=== PATIENT | female | born 2000 | race Caucasian/White ===

== ENCOUNTER 2023-12-22 17:25 | Emergency (ER) | payer OTHER, SELFPAY ==
[2023-12-22 17:28] VITALS: BP 121/67
[2023-12-22 17:47] LABS: % Basophils 0.3 % (0-2); % Eosinophils 0.2 % (0-6); % Immature Granulocytes 0.5 % (0-0.5); % Lymphocytes 7.2 % (20.5-51.1); % Monocytes 8.6 % (1.7-9.3); % Neutrophils 83.2 % (42.2-75.2); Absolute Immature Granulocytes 0.1 10^3/uL (0-0.05); Absolute Lymphocytes 0.9 10^3/uL (1.2-3.4); Absolute Monocytes 1.1 10^3/uL (0.1-0.6); Absolute Neutrophils 10.2 10^3/uL (1.4-6.5); Hematocrit 35.7 % (37.0-47.0); Hemoglobin 12.6 g/dL (12.0-16.0); Mean Corp Hgb Conc. 35.3 g/dL (33.0-37.0); Mean Corpuscular Hgb 27.5 pg (27.0-31.0); Mean Corpuscular Volume 77.9 fL (81.0-99.0); Mean Platelet Volume 11.3 fL (7.4-10.4); Nucleated Red Blood Cells % 0 %; Platelet Count 305 10^3/uL (130-400); Red Blood Cell Count 4.58 10^6/uL (4.20-5.40); Red Cell Dist. Width 13.2 % (11.5-14.5); White Blood Cell Count 12.3 10^3/uL (4.8-10.8)
[2023-12-22 18:04] LABS: ALT (SGPT) 14 U/L (0-35); AST (SGOT) 23 U/L (14-36); Albumin 4.7 g/dl (3.5-5.0); Alkaline Phosphatase 93 U/L (38-126); Blood Urea Nitrogen 8 mg/dl (7-17); COVID-19 Antigen Negative (Negative); Calcium 9.3 mg/dl (8.4-10.2); Carbon Dioxide 21 mmol/L (22-30); Chloride 98 mmol/L (98-107); Glucose 125 mg/dl (70-99); Potassium 4.5 mmol/L (3.5-5.1); Sodium 130 mmol/L (135-145); Total Protein 7.1 g/dl (6.3-8.2); eGFR > 60.00
--- NOTE | 2023-12-22 18:59 | ED.GENMED ---
History of Present Illness
General
Chief Complaint: Cold/Flu/URI Symptoms
Time Seen by Provider: 12/22/23 18:59
History of Present Illness
History of Present Illness:
HPI: Yesterday morning, after night of drinking alcohol, she felt unwell and thought she was 'hung over'. Yesterday evening she felt increased myalgias and arthralgias and started having some neck discomfort. She has not had a fever and reports a
Tmax of 99 �F. She spoke to a PA and ultimately family spoke to Dr. Olivares who is a family friend who encouraged ED evaluation. Mom reports no confusion. She reports pain to the back of the head.
EXAM:
GENERAL: Well appearing in no distress
HEENT: Moist oral mucosa
NECK: There is decreased active range of motion to extension and flexion
CARDIOVASCULAR: No murmurs, normal heart rate, regular rhythm, No chest wall tenderness
PULMONARY: No respiratory distress, breath sounds are clear and equal
ABDOMEN: Soft with no peritoneal signs, no tenderness
NEUROLOGIC: Excellent strength all extremities, no coordination deficits negative Kernig's and Brudzinski's sign's
PSYCHIATRIC: Appropriate mental status, normal insight and judgement
EXTREMITIES: Nontender, no edema, moves all extremities equally
SKIN: No rash, no lesions
TIME OF INITIAL ENCOUNTER: 7:05 PM
NUMBER AND COMPLEXITY OF PROBLEMS ADDRESSED AT THE ENCOUNTER
� Chronic conditions affecting care: ADHD
� Acute Exacerbation and/or Progression of Chronic Illness: This is an acute problem
� Differential Diagnosis includes: Viral syndrome, meningitis (possible viral, low suspicion for bacterial),
AMOUNT AND/OR COMPLEXITY OF DATA TO BE REVIEWED AND ANALYZED
� I performed an independent evaluation of and my interpretation is:
EKG:
CT:
X-rays:
Laboratory Studies: White count 12.3, hemoglobin normal, bicarb 21 otherwise chemistries relatively unremarkable, COVID-negative, flu negative
Other:
� Review of other/old records: The patient was seen in 2019 with diarrhea and had an unremarkable chest x-ray at that time
� Clinical information was obtained by an independent historian: I spoke to the mother at bedside
� Prescriptions/Medications Considered but not given:
� Further testing considered but not performed: No indication for chest x-ray as there are no respiratory symptoms. I had long discussion with the patient and her father in the room on reassessment 8:30 PM. There has been
minimal improvement with Toradol however she appears very well with appropriate mental status. I informed her that I have very low suspicion of a bacterial meningitis however cannot definitively rule it out without a lumbar puncture. She
verbalized understanding of this I did tell her that is very possible that she could have a viral meningitis. At this time she declines lumbar puncture which I feel is reasonable and she will return here if worse.
RISK OF COMPLICATIONS AND/OR MORBIDITY OR MORTALITY OF PATIENT MANAGEMENT
� Social determinants of health affecting care: Lives at home
� Discussion with other providers:
� Escalation of care including admission/observation vs risk of discharge considered: We talked about possibility of lumbar puncture. The patient does have pain with attempted flexion and extension at the cervical spine, however
at this time she has excellent mental status with no confusion and has been afebrile. Suspect more of a viral syndrome. See above.
Past History
Social History
Tobacco: Non-smoker
Alcohol: None
Drug: None
Phy Exam
Physical Exam
Physical Exam:
See HPI
Course
Orders/Labs/Results
Orders:
Orders
12/22/23 17:40
COVID-19 Antigen Urgent
Source: Nasal Swab
Complete Blood Count/With Diff Urgent
Comprehensive Metabolic Panel Urgent
Influenza A+B Rapid Molecular Urgent
MANPREET Source: Nasal Swab
Specimen Description:
12/22/23 19:01
0.9% Sodium Chloride 1000 ml [Nss] 1,000 ml IV BOLUS
Ketorolac [Toradol] 15 mg IV NOW STA
12/22/23 19:27
Lactic Acid Q4H
Comment: CANCEL 2nd LACTIC ACID IF 1st LACTIC ACID IS LESS THAN 2
Blood Culture Urgent
MANPREET Source: Blood/Venous
Specimen Description:
12/22/23 23:30
Lactic Acid Q4H
Comment: CANCEL 2nd LACTIC ACID IF 1st LACTIC ACID IS LESS THAN 2
Abnormal Lab Results
12/22/23
17:40
WBC 12.3 H 10^3/uL
(4.8-10.8)
Hct 35.7 L %
(37.0-47.0)
MCV 77.9 L fL
(81.0-99.0)
MPV 11.3 H fL
(7.4-10.4)
Abs Immat Gran (auto) 0.1 H 10^3/uL
(0-0.05)
Absolute Neuts (auto) 10.2 H 10^3/uL
(1.4-6.5)
Absolute Lymphs (auto) 0.9 L 10^3/uL
(1.2-3.4)
Absolute Monos (auto) 1.1 H 10^3/uL
(0.1-0.6)
Neutrophils % 83.2 H %
(42.2-75.2)
Lymphocytes % 7.2 L %
(20.5-51.1)
Sodium 130 L mmol/L
(135-145)
Carbon Dioxide 21 L mmol/L
(22-30)
Glucose 125 H mg/dl
(70-99)
12/22/23 17:40
12/22/23 17:40
Vital Signs
Initial and Last Documented VS:
Initial Vital Signs
Temp Pulse Resp BP Pulse Ox
98.3 F 124 20 121/67 99
12/22/23 17:28 12/22/23 17:28 12/22/23 17:28 12/22/23 17:28 12/22/23 17:28
Last Documented Vital Signs
Temp Pulse Resp BP Pulse Ox
98.3 F 124 20 121/67 99
12/22/23 17:28 12/22/23 17:28 12/22/23 17:28 12/22/23 17:28 12/22/23 17:28
*Critical Care Note
Total Time (30-74mins, 75-104mins- exclusive of procedures): Not Applicable
ED Attending Note
-
Portions of this chart may have been created with voice recognition software.� Occasional wrong word or��sound alike� substitutions may have occurred due to the inherent limitations of voice recognition software.
Discharge Plan
Departure
Prescriptions:
No Action
ibuprofen 600 MG tablet
600 mg PO Q6HPRN PRN (Reason: pain) Qty: 20 0RF
ondansetron 4 MG tablet,disintegrating
4 mg PO TIDPRN PRN (Reason: nausea/vomiting) Qty: 10 0RF
Referrals:
Grant Cleaning MD [Family Provider] -
Interventions
Interventions:
*Risk Screen - Suicide Last Done: 12/22/23 17:28
*General Assessment Last Done: 12/22/23 17:28
*Neglect/Abuse Screening Last Done: 12/22/23 17:28
ED- Pulmonary Assessment Last Done: 12/22/23 19:34
Discharge Date and Time
Print Language: HUNGARIAN
[2023-12-22] MEDS: TORADOL 15 MG IV (19:18)
[2023-12-22] MEDS: NSS 1000 IV (19:19)
[2023-12-22 19:52] LABS: Lactic Acid 0.8 mmol/L (0.7-2.0)
[2023-12-22 20:42] VITALS: BP 107/70
[2023-12-22] MEDS: TYLENOL 1000 MG PO (20:54)
== END 2023-12-22 21:05 | disposition home or self-care (01) ==
LOC: EMR 17:25
PROVIDERS: Emergency Medicine; EMERGENCY PHYSICIAN Emergency Medicine; FAMILY PHYSICIAN Family Medicine
DX: M54.2 Cervicalgia (principal); M79.10 Myalgia, unspecified site; M25.50 Pain in unspecified joint; F90.9 Attention-deficit hyperactivity disorder, unspecified type
CPT/HCPCS: 99284; 96374; 96361; 80053; 83605; 85025; 87040; 87502; 87811